=== PATIENT | male | born 1930 | race Caucasian/White ===

== ENCOUNTER → 2017-01-03 | Outpatient (CLI) | payer MEDICARE, OTHER | END | disposition home or self-care (01) | LOC: PCVCIMAG 07:52 | PROVIDERS: ATTEND Internal Medicine Cardiovascular Disease | DX: I65.23 Occlusion and stenosis of bilateral carotid arteries (principal); E78.00 Pure hypercholesterolemia, unspecified; I10 Essential (primary) hypertension; I71.4 Abdominal aortic aneurysm, without rupture; I73.9 Peripheral vascular disease, unspecified; I25.5 Ischemic cardiomyopathy; I25.10 Atherosclerotic heart disease of native coronary artery without angina pectoris | CPT/HCPCS: 80061; 93005; 93306; 93880; 93978; G0463 ==

== ENCOUNTER → 2017-07-09 | Outpatient (CLI) | payer MEDICARE, OTHER | END | disposition home or self-care (01) | LOC: PCVCCLINIC 10:11 | PROVIDERS: ATTEND Internal Medicine Cardiovascular Disease | DX: I25.10 Atherosclerotic heart disease of native coronary artery without angina pectoris (principal); I10 Essential (primary) hypertension; I71.4 Abdominal aortic aneurysm, without rupture; I65.23 Occlusion and stenosis of bilateral carotid arteries; I45.10 Unspecified right bundle-branch block; I25.5 Ischemic cardiomyopathy; E78.00 Pure hypercholesterolemia, unspecified; I35.0 Nonrheumatic aortic (valve) stenosis; R94.31 Abnormal electrocardiogram [ECG] [EKG]; Z87.891 Personal history of nicotine dependence; Z79.899 Other long term (current) drug therapy | CPT/HCPCS: 80061; 93005; G0463 ==

== ENCOUNTER → 2018-02-19 | Outpatient (CLI) | payer MEDICARE, OTHER | END | disposition home or self-care (01) | LOC: PCVCIMAG 15:13 | DX: I65.23 Occlusion and stenosis of bilateral carotid arteries (principal); I25.10 Atherosclerotic heart disease of native coronary artery without angina pectoris; I71.4 Abdominal aortic aneurysm, without rupture; E78.00 Pure hypercholesterolemia, unspecified; I45.10 Unspecified right bundle-branch block; I25.5 Ischemic cardiomyopathy; I35.0 Nonrheumatic aortic (valve) stenosis; I10 Essential (primary) hypertension; R94.31 Abnormal electrocardiogram [ECG] [EKG]; Z88.8 Allergy status to other drugs, medicaments and biological substances; Z87.891 Personal history of nicotine dependence; Z79.899 Other long term (current) drug therapy | CPT/HCPCS: 80061; 93005; 93306; G0463 ==

== ENCOUNTER → 2018-09-13 | Outpatient (CLI) | payer MEDICARE, OTHER ==
--- NOTE | 2018-09-13 11:53 | PCVCIMAG ---
APPROVED REPORT Indications Stenosis Doppler Spectral Velocity Analysis PSV / EDVPSV / EDV ECA (R) 110 / 0 cm/sECA (L) 67 / 0 cm/s dICA (R) 38 / 10 cm/sdICA (L) 47 / 8 cm/s Pancho (R) 44 / 9 cm/smICA (L) 85 / 9 cm/s pICA (R) 142 / 30 cm/spICA (L) 145 / 32 cm/s Bulb (R) 44 / 7 cm/sBulb (L) 58 / 8 cm/s dCCA (R) 51 / 6 cm/sdCCA (L) 62 / 9 cm/s mCCA (R) 49 / 10 cm/smCCA (L) 70 / 11 cm/s Vert (R) 35 / 9 cm/sVert (L) 37 / 9 cm/s ICA/CCA 2.78ICA/CCA 2.34 Findings The right carotid bulb has moderate calcified plaque. The right proximal internal carotid artery shows 50-65% stenosis. The right common carotid artery shows no significant stenosis. The right external carotid artery shows no significant stenosis. The left carotid bulb has moderately severe calcified plaque. The left proximal internal carotid artery shows 50-65% stenosis. The left common carotid artery shows no significant stenosis. The left external carotid artery shows no significant stenosis. Conclusion 1. Right internal carotid artery stenosis (50-65%) 2. Left internal carotid artery stenosis (50-65%) 3. Antegrade vertebral flow Progression of disease compared to a study dated December 2016
--- NOTE | 2018-09-13 14:53 | PCVCIMAG ---
EXAM: AORTOILIAC DUPLEX INDICATION: Abdominal aortic aneurysm. FINDINGS: AORTA: Suprarenal aorta measures maximum diameter of 3.0 cm. There is a fusiform infrarenal aortic aneurysm. The infrarenal aorta measures maximum diameter of 3.5 x 4.1 cm. No aortic stenosis. RIGHT COMMON ILIAC ARTERY: Maximum diameter is 2.2 cm. No significant stenosis. RIGHT EXTERNAL ILIAC ARTERY: No significant stenosis. LEFT COMMON ILIAC ARTERY: Maximum diameter is 1.6 cm. No significant stenosis. LEFT EXTERNAL ILIAC ARTERY: No significant stenosis. IMPRESSION: 4.1 cm infrarenal abdominal aortic aneurysm is unchanged compared to January 03, 2017. 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 LOC:[id number]
== END | disposition home or self-care (01) ==
LOC: PCVCIMAG 09:12
PROVIDERS: ATTEND Internal Medicine Cardiovascular Disease
DX: I65.23 Occlusion and stenosis of bilateral carotid arteries (principal); I71.4 Abdominal aortic aneurysm, without rupture; I25.10 Atherosclerotic heart disease of native coronary artery without angina pectoris; E78.00 Pure hypercholesterolemia, unspecified; I45.10 Unspecified right bundle-branch block; I10 Essential (primary) hypertension; I72.3 Aneurysm of iliac artery; I35.0 Nonrheumatic aortic (valve) stenosis; E78.5 Hyperlipidemia, unspecified; Z87.891 Personal history of nicotine dependence
CPT/HCPCS: 36415; 80061; 93005; 93880; 93978; G0463

== ENCOUNTER → 2018-10-24 | Outpatient (CLI) | payer MEDICARE, OTHER ==
[~2018-10-24] MED LIST: REGADENOSON 0.4 MG/5 ML DISP.SYRIN. IV ONE
--- NOTE | 2018-10-25 10:29 | PCVCIMAG ---
APPROVED REPORT Imaging Protocol: Rest Tc-99m/Stress Tc-99m 1 day Study performed: 10/24/2018 08:52:04 Indication: CAD, Pre-Operative CV evaluation Patient Location: Out-Patient Stress Nurse: Jerica Zuñiga RN, Cely Krause RN MT Tech:Lisa Hermelinda [facility] Ht: 5 ft 8 in Wt: 212 lbs BSA: 2.10 m2 HR: 75 bpm BP: 177/84 mmHg BMI: 32.2 Rhythm: Sinus Rhythm, RBBB Medical History Medical History: HTN, Hyperlipidemia, CVD, CAD, PVD, Former Smoker Medications: Plavix, Atorvastatin, Gabapentin, Imdur, Metoprolol, Ranexa, Protonix Allergies: Sulfa Cardiac Risk Factors: Age Previous Cardiac Procedures: PCI Pretest Chest Pain Characteristics: No chest pain Exercise History: Sedentary Physical Disabilities: Uses a cane Meds Held (24 hrs): pt chose to hold all meds this am Resting Data Rest SPECT myocardial perfusion imaging was performed in supine position 45 minutes following the intravenous injection of 10.7 mCi of Tc-99m Sestamibi. Time of rest injection: 0810 Administration Route: IV Administration Site: Right Hand Pharmacologic Stress Pharmacologic stress test was performed by injecting Regadenoson 0.4 mg IV push over 10-15 seconds immediately followed by the intravenous injection of 31.1 mCi of Tc-99m Sestamibi. Time of stress injection: 929 Date: 10/24/2018 Administration Route: IV Administration Site: Right Hand Gated Stress SPECT was performed 45 minutes after stress injection. The images were gated to evaluate regional wall motion and calculate left ventricular ejection fraction. Stress Test Details Stress Test: Pharmacologic stress testing performed using 0.4 mg of regadenoson per 5 mL given IV over 10 seconds. Reason for pharmacologic stress test: Uses a cane. HRMax Heart Rate (APMHR): 131 bpm Resting HR: 75 bpmTarget HR (85% APMHR): 111 bpm Max HR Achieved: 85 bpm % of APMHR: 64 Recovery HR: 76 bpm BP Resting BP: 177/84 mmHg Max BP: 200/86 mmHg Recovery BP: 170/81 mmHg ECG Resting ECG: Sinus Rhythm, RBBB Stress ECG: Sinus Rhythm, RBBB, PAC's Arrhythmia: PAC's, PVC's Recovery ECG: Sinus Rhythm, RBBB Clinical Reason for Termination: Completed protocol Stress Symptoms: None Exercise duration: 0 min 55 sec Stress ECG Conclusion ECG: Non-ischemic Study Quality Study: Good Study Data Post stress, the left ventricular ejection was 34%.. SSS: 15 SRS: 12 SDS: 4 TID = 1.07. 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 Wall Motion Moderately decreased left ventricular systolic function. 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 Post stress, the left ventricular ejection was 34%. No change since prior study dated August 2015. Interpreted by: Ryan Ramos MD Electronically Approved: 10/24/2018 22:34:55 <Conclusion> ECG: Non-ischemic
== END | disposition home or self-care (01) ==
LOC: PCVCIMAG 07:57
PROVIDERS: ATTEND Internal Medicine Cardiovascular Disease
DX: Z01.810 Encounter for preprocedural cardiovascular examination (principal); I25.10 Atherosclerotic heart disease of native coronary artery without angina pectoris; E78.5 Hyperlipidemia, unspecified; I10 Essential (primary) hypertension; Z87.891 Personal history of nicotine dependence
CPT/HCPCS: 78452; 93017; A9500; J2785